=== PATIENT | male | born 1975 | race Caucasian/White ===

== ENCOUNTER 2021-12-10 21:09 | Emergency (ER) | payer BC, OTHER ==
[~2021-12-10] VITALS: Ht 188 cm; Wt 95.3 kg
--- NOTE | 2021-12-10 21:39 | NUR ---
TO ER BED 3. BIBS C/O LACERATION TO R REZA APPROX 1 HOUR AGO WITH AXE. WOUND IS OPEN TO AIR, ACTIVELY BLEEDING, WELL APPROXIMATED, ABOUT 1/2 INCH. WOUND KEPT IN CLEAN AREA. AWAITING MD WICK
--- NOTE | 2021-12-10 21:40 | NUR ---
ORDAINED MINISTER AT BEDSIDE FOR WOUND CARE
--- NOTE | 2021-12-10 21:44 | NUR ---
XRAY AT BEDSIDE
[2021-12-10] MEDS ORDERED: IBUPROFEN 600 MG TABLET PO ONE (22:00)
[2021-12-10] MEDS ORDERED: IBUPROFEN 600 MG TABLET ONE (22:10)
[2021-12-10] MEDS ORDERED: IBUP-1955 PO (22:11)
--- NOTE | 2021-12-10 22:40 | NUR ---
Patient discharged to home in stable condition. Written and verbal after care instructions given. Patient verbalizes understanding of instruction.
[2021-12-10 22:41] VITALS: BP 120/80
== END 2021-12-10 22:41 | disposition home or self-care (01) ==
LOC: ER 21:24
DX: S81.811A Laceration without foreign body, right lower leg, initial encounter (principal); W26.8XXA Contact with other sharp object(s), not elsewhere classified, initial encounter; Y93.89 Activity, other specified; Y92.89 Other specified places as the place of occurrence of the external cause; Y99.8 Other external cause status
CPT/HCPCS: 73590-TC